=== PATIENT | female | born 1980 | race Caucasian/White ===

== ENCOUNTER 2016-10-18 20:45 | Emergency (ER) | payer OTHER ==
[2016-10-18] MEDS ORDERED: ACETAMINOPHEN 325 MG TABLET PO STA (21:24)
[2016-10-18] MEDS ORDERED: DEXAMETHASONE 10 MG/ML VIAL IM STA (21:24)
[2016-10-18] MEDS ORDERED: LORATADINE 10 MG TABLET PO STA (21:24)
[2016-10-18] MEDS ORDERED: ACETAMINOPHEN 325 MG TABLET PO ONE (21:32)
[2016-10-18] MEDS ORDERED: LORATADINE 10 MG TABLET PO ONE (21:32)
[2016-10-18] MEDS ORDERED: DEXAMETHASONE 10 MG/ML VIAL ONE (21:32)
== END 2016-10-18 22:03 | disposition home or self-care (01) ==
DX: L50.0 Allergic urticaria (principal); T37.0X5A Adverse effect of sulfonamides, initial encounter
CPT/HCPCS: 96372; 99283; A9270